=== PATIENT | male | born 2005 | race Hispanic/Latino ===

== ENCOUNTER 2024-01-25 11:41 | Emergency (ER) | payer SELFPAY ==
--- NOTE | 2024-01-25 12:02 | ER ---
Nurse's Notes [facility] Name: Juan Miguel Ba Age: 18 yrs Sex: Male : 2005 Arrival Date: 01/25/2024 Time: 11:41 Bed 11 Private MD: Diagnosis: Headache Presentation: 01/24 11:49 Chief complaint: Headache and generalized weakess x 2 days. Coronavirus screen: Client hb presents with at least one sign or symptom that may indicate coronavirus-19. Provider contacted for isolation considerations. Ebola Screen: No symptoms or risks identified at this time. Initial Sepsis Screen: Does the patient meet any 2 criteria? No. Patient's initial sepsis screen is negative. Does the patient have a suspected source of infection? No. Patient's initial sepsis screen is negative. Risk Assessment: Do you want to hurt yourself or someone else? Patient reports no desire to harm self or others. Onset of symptoms was January 24, 2024. 11:49 Method Of Arrival: Ambulatory hb 11:49 Acuity: JOHN 4 hb Triage Assessment: 11:49 General: Appears in no apparent distress. Behavior is calm, cooperative. Pain: Pain hb currently is 4 out of 10 on a pain scale. Neuro: Level of Consciousness is awake, alert, obeys commands, Oriented to person, place, time, situation. Cardiovascular: Patient's skin is warm and dry. Respiratory: Respiratory effort is even, unlabored, Respiratory pattern is regular, symmetrical. Historical: - Allergies: 11:50 No Known Allergies; hb - Home Meds: 11:50 None [Active]; hb - PMHx: 11:50 None; hb - PSHx: 11:50 None; hb - Immunization history:: Adult Immunizations up to date. - Infectious Disease History:: Denies. - Social history:: Smoking status: Reported history of juuling and/or vaping. - Family history:: not pertinent. Screenin:02 [facility] ED Fall Risk Assessment (Adult) History of falling in the last 3 months, hb including since admission No falls in past 3 months (0 pts) Confusion or Disorientation No (0 pts) Intoxicated or Sedated No (0 pts) Impaired Gait No (0 pts) Mobility Assist Device Used No (0 pt) Altered Elimination No (0 pt) Score/Fall Risk Level 0 - 2 = Low Risk Oriented to surroundings, Maintained a safe environment, Educated pt \T\ family on fall prevention, incl call for assistance when getting out of bed. Abuse screen: Denies threats or abuse. Denies injuries from another. Nutritional screening: No deficits noted. Tuberculosis screening: No symptoms or risk factors identified. Assessment: 12:02 General: See triage assessment . hb Vital Signs: 11:49 BP 126 / 83; Pulse 94; Resp 16; Temp 98.1; Pulse Ox 100% on R/A; Weight 56.7 kg; Height hb 6 ft. 0 in. ; Pain 4/10; 11:49 Body Mass Index 16.95 (56.70 kg, 182.88 cm) - Percentile 0.2 % hb 11:49 Pain Scale: Adult hb ED Course: 11:44 Patient arrived in ED. mg5 11:47 Basim Mann MD is Attending Physician. rt 11:50 Triage completed. hb 11:50 Arm band placed on. hb 12:02 Patient has correct armband on for positive identification. Provided Education on: use hb of call light . 12:09 Ximena Hanna, RN is Primary Nurse. hb 12:09 No provider procedures requiring assistance completed. Patient did not have IV access hb during this emergency room visit. Administered Medications: No medications were administered Medication: 12:02 VIS not applicable for this client. hb Outcome: 12:01 Discharge ordered by . rt 12:09 Discharged to home ambulatory, hb 12:09 Condition: stable 12:09 Discharge instructions given to patient, Instructed on discharge instructions, follow up and referral plans. medication usage, Demonstrated understanding of instructions, follow-up care, medications, 12:09 Patient left the ED. hb Signatures: Ximena Hanna RN RN Basim Mann MD MD rt Elda Zavala mg5
--- NOTE | 2024-01-25 12:02 | EDPHYS ---
Physician Documentation [facility] Name: Juan Miguel Ba Age: 18 yrs Sex: Male : 2005 Arrival Date: 01/25/2024 Time: 11:41 Bed 11 Private MD: ED Physician Basim Mann HPI: 01/24 13:19 This 18 yrs old Male presents to ER via Ambulatory with complaints of rt Headache, General Weakness. 13:19 Patient presents to the ED with 2 days of mild headache which he states has rt significantly improved and is only slight currently. Patient states that he believes that this is from him not eating enough. Patient was sent by his employer for clearance. Denies other acute complaints at this time, symptoms are mild in severity, no other aggravating or alleviating factors.. Historical: - Allergies: 11:50 No Known Allergies; hb - Home Meds: 11:50 None [Active]; hb - PMHx: 11:50 None; hb - PSHx: 11:50 None; hb - Immunization history:: Adult Immunizations up to date. - Infectious Disease History:: Denies. - Social history:: Smoking status: Reported history of juuling and/or vaping. - Family history:: not pertinent. ROS: 13:19 Constitutional: Negative for fever, chills, and weight loss, Cardiovascular: Negative rt for chest pain, palpitations, and edema, Respiratory: Negative for shortness of breath, cough, wheezing, and pleuritic chest pain, Abdomen/GI: Negative for abdominal pain, nausea, vomiting, diarrhea, and constipation, MS/Extremity: Negative for injury and deformity, Skin: Negative for injury, rash, and discoloration, 13:19 Neuro: Positive for headache, Negative for altered mental status, Exam: 13:19 Constitutional: This is a well developed, well nourished patient who is awake, alert, rt and in no acute distress. Head/Face: Normocephalic, atraumatic. Chest/axilla: Normal chest wall appearance and motion. Nontender with no deformity. No lesions are appreciated. Cardiovascular: Regular rate and rhythm with a normal S1 and S2. No gallops, murmurs, or rubs. Normal PMI, no JVD. No pulse deficits. Respiratory: Lungs have equal breath sounds bilaterally, clear to auscultation and percussion. No rales, rhonchi or wheezes noted. No increased work of breathing, no retractions or nasal flaring. Abdomen/GI: Soft, non-tender, with normal bowel sounds. No distension or tympany. No guarding or rebound. No evidence of tenderness throughout. Skin: Warm, dry with normal turgor. Normal color with no rashes, no lesions, and no evidence of cellulitis. MS/ Extremity: Pulses equal, no cyanosis. Neurovascular intact. Full, normal range of motion. Neuro: Awake and alert, GCS 15, oriented to person, place, time, and situation. Cranial nerves II-XII grossly intact. Motor strength 5/5 in all extremities. Sensory grossly intact. Cerebellar exam normal. Normal gait. 13:19 Neck: Full range of motion, no meningismus, Vital Signs: 11:49 BP 126 / 83; Pulse 94; Resp 16; Temp 98.1; Pulse Ox 100% on R/A; Weight 56.7 kg; Height hb 6 ft. 0 in. ; Pain 4/10; 11:49 Body Mass Index 16.95 (56.70 kg, 182.88 cm) - Percentile 0.2 % hb 11:49 Pain Scale: Adult hb MDM: 11:52 Medical Screening Exam initiated rt 13:19 Differential diagnosis: Nonspecific headache. Data reviewed: vital signs, nurses notes. rt Test considered but Not performed: Other Details Only minor symptoms, significantly improving, imaging, labs are not indicated. Counseling: I had a detailed discussion with the patient and/or guardian regarding the historical points, exam findings, and any diagnostic results supporting the discharge/admit diagnosis, the need for outpatient follow up, to return to the emergency department if symptoms worsen or persist or if there are any questions or concerns that arise at home. Response to treatment: the patient's symptoms have markedly improved after treatment. Administered Medications: No medications were administered Disposition Summary: 01/25/24 12:01 Discharge Ordered Notes: Location: Home rt Problem: new rt Symptoms: have improved rt Condition: Stable rt Diagnosis - Headache rt Followup: rt - With: Private Physician - When: 2 - 3 days - Reason: Discharge Instructions: - Discharge Summary Sheet rt - General Headache Without Cause rt Forms: - Work release form rt - Medication Reconciliation Form rt - Antibiotic Education rt - Prescription Opioid Use rt - Patient Portal Instructions rt - Leadership Thank You Letter rt Signatures: Ximena Hanna RN RN hb Basim Mann MD MD rt
[2024-01-25 12:36] VITALS: BP 126/83; TEMP 98.1; O2SAT 100
== END 2024-01-25 12:09 | disposition home or self-care (01) ==
LOC: ER 11:41
DX: R51.9 Headache, unspecified (principal)
CPT/HCPCS: 99282